=== PATIENT | male | born 1990 | race Asian ===

== ENCOUNTER 2024-08-13 23:29 | Emergency (ER) | payer OTHER ==
[2024-08-13 23:54] VITALS: BP 131/83; PULSE 64; RESP 18; TEMP 97.9; BMI 23.0
[2024-08-14 00:54] LABS: BASO % 0.3 % (0-2.0); HEMATOCRIT 43.9 % (35.4-49); HEMOGLOBIN 15.3 GM/dL (11.7-16.9); LYMPH % 34.2 % (8-40); MCH 28.9 pg (25.7-33.7); MCHC 34.7 g/dl (32.0-35.9); MEAN CELL VOLUME 83.2 fl (80-96); MEAN PLT VOLUME 8.3 fl (7.5-11.1); MONO % 8.9 % (3.8-10.2); NEUT % 53.6 % (42.8-82.8); PLATELET COUNT 229 10^3/uL (134-434); RBC 5.28 M/mm3 (4.00-5.60); RDW 12.9 % (11.9-15.9); WHITE BLOOD COUNT 8.4 K/mm3 (4.0-10.0)
[2024-08-14 01:21] LABS: POTASSIUM 3.9 mmol/L (3.5-5.1)
[2024-08-14 01:23] LABS: CALCIUM 9.4 mg/dL (8.5-10.1)
[2024-08-14 01:24] LABS: ALBUMIN 4.6 g/dl (3.4-5.0); BLOOD UREA NITROGEN 16.6 mg/dL (7-18)
[2024-08-14 01:28] LABS: CREATININE 0.9 mg/dL (0.55-1.3)
[2024-08-14 01:29] LABS: BILIRUBIN,TOTAL 0.7 mg/dL (0.2-1); TOT PROT 7.8 g/dl (6.4-8.2)
== END 2024-08-14 03:35 | disposition left against medical advice (07) ==
LOC: JER 23:29
DX: R07.89 Other chest pain (principal); R00.2 Palpitations
CPT/HCPCS: 36415; 71046-TC-FY; 80053; 84484; 85025; 93005; 93010; 99285-25